=== PATIENT | male | born 1965 | race Caucasian/White ===

== ENCOUNTER → 2016-06-10 | Outpatient (CLI) | payer OTHER | LOC: BMCIMAGING 10:40 | PROVIDERS: ATTEND Internal Medicine | DX: E04.1 Nontoxic single thyroid nodule (principal) | CPT/HCPCS: 76536-PO ==

== ENCOUNTER → 2017-11-22 | Outpatient (CLI) | payer OTHER | LOC: FIMAGING 06:52 | PROVIDERS: ATTEND Internal Medicine | DX: M48.07 Spinal stenosis, lumbosacral region (principal); M53.87 Other specified dorsopathies, lumbosacral region; M51.27 Other intervertebral disc displacement, lumbosacral region ==

== ENCOUNTER 2018-05-20 14:06 | Observation (INO) | payer OTHER ==
[2018-05-20] MEDS ORDERED: ASPIRIN 81 MG CHEWABLE TAB PO ONE (14:46)
[2018-05-20] MEDS ORDERED: MAG HYDROX/AL HYDROX/SIMETH 30 ML UDCUP PO ONE (14:47)
[2018-05-20] MEDS ORDERED: HYOSCYAMINE SULFATE 0.125 MG TAB PO ONE (14:47)
[2018-05-20] MEDS ORDERED: LIDOCAINE 2% VISCOUS 15 ML UDCUP PO ONE (14:47)
[2018-05-20 14:48] LABS: PLATELET COUNT 228 10^3/uL (150-400)
--- NOTE | 2018-05-20 14:49 | CPEKG ---
Test Reason : OPEN Blood Pressure : / mmHG Vent. Rate : 100 BPM Atrial Rate : 100 BPM P-R Int : 151 ms QRS Dur : 072 ms QT Int : 339 ms P-R-T Axes : 033 -07 061 degrees QTc Int : 438 ms Sinus tachycardia Low voltage, precordial leads ST elevation, consider inferior injury Confirmed by Peter Escobar ([id number]) on 05/20/2018 2:49:25 PM Referred By: PHYSICIAN ED Confirmed By:Peter Escobar
--- NOTE | 2018-05-20 14:51 | EDPHY ---
H & P Stated Complaint: midsternal CP x ~1 hour, radiation to L arm Time Seen by Provider: 05/20/18 14:32 HPI/ROS: CHIEF COMPLAINT: Chest pain HISTORY OF PRESENT ILLNESS: 53-year-old male with hypertension presents with chest pain. This morning he ordered out in a gym and felt fine. He went to a restaurant and ate fish tacos afterwards, although he was not hungry. When he arrived home, he was showering when he had the gradual onset of substernal chest pressure. The chest pressure started at 1:00 p.m. And has been persistent and moderate. Associated with tingling in the left arm. No associated diaphoresis or shortness of breath. No prior similar symptoms. Cardiac risk factors positive for hypertension. Nonsmoker; no family history ( father [place] 64yo); diabetes or hypercholesterolemia. REVIEW OF SYSTEMS: complete 10 point ROS reviewed and is negative except for the noted elements in the HPI - Medical/Surgical History Hx Asthma: No Hx Chronic Respiratory Disease: No Hx Diabetes: No Hx Cardiac Disease: No Hx Renal Disease: No Hx Cirrhosis: No Hx Alcoholism: No Hx HIV/AIDS: No Hx Splenectomy or Spleen Trauma: No Other PMH: htn - Social History Smoking Status: Never smoked - Physical Exam Exam: General Appearance: Alert, pleasant Eyes: Pupils equal and round, no conjunctival pallor ENT, Mouth: Mucous membranes moist Neck: Normal inspection Respiratory: Lungs are clear to auscultation Cardiovascular: Regular rate and rhythm, no murmur Gastrointestinal: Abdomen is soft and nontender Neurological: A&O, nonfocal exam Skin: Warm and dry, no rash Extremities: Nontender, no pedal edema Psychiatric: Mood and affect normal Constitutional: Initial Vital Signs Temperature (C) 36.5 C 05/20/18 14:08 Heart Rate 103 H 05/20/18 14:08 Respiratory Rate 16 05/20/18 14:08 Blood Pressure 147/100 H 05/20/18 14:08 O2 Sat (%) 97 05/20/18 14:08 O2 Delivery Mode Room Air Allergies/Adverse Reactions: No Known Allergies Allergy (Verified 05/20/18 14:07) Home Medications: Medication Instructions Recorded Lisinopril [Zestril 10 mg (*)] 10 mg PO DAILY 05/20/18 Medical Decision Making - Diagnostics EKG Interpretation: EKG interpreted by me reveals sinus tachycardia, rate 100, slight ST segment elevation inferiorly. Repeat EKG interpreted by me reveals sinus rhythm, rate 93, ST segment elevation in the inferior leads and in leads V3 and V4. Imaging Results: Imaging Impressions Chest X-Ray 05/20/18 14:34 Impression: Query airways disease with no superimposed acute abnormality identified. Imaging: I viewed and interpreted images myself ED Course/Re-evaluation: This patient presents with chest pain. Initial EKG shows borderline ST segment elevation inferiorly. After my initial evaluation, a repeat EKG was ordered and reveals ST segment elevation inferiorly and in leads V3 and V4, consistent with acute coronary syndrome. Cardiac alert called. Aspirin 324 mg orally given. Morphine and Zofran IV given. Cardiology consulted. The patient was seen by Dr. Davis in the emergency department. He was taken directly to the [facility] stores. He was stable throughout his emergency department stay. Differential Diagnosis: Differential diagnosis includes though it is not limited to pneumonia, pneumothorax, pulmonary embolism, aortic dissection, pericarditis, acute coronary syndrome. - Data Points Laboratory Results: Laboratory Results 05/20/18 14:28 05/20/18 14:28 05/20/18 05/20/18 05/20/18 14:31 14:28 14:28 WBC 14.73 10^3/uL H 10^3/uL (3.80-9.50) RBC 5.33 10^6/uL 10^6/uL (4.40-6.38) Hgb 17.1 g/dL g/dL (13.7-17.5) Hct 49.0 % % (40.0-51.0) MCV 91.9 fL fL (81.5-99.8) MCH 32.1 pg pg (27.9-34.1) MCHC 34.9 g/dL g/dL (32.4-36.7) RDW 12.4 % % (11.5-15.2) Plt Count 228 10^3/uL 10^3/uL (150-400) MPV 10.7 fL fL (8.7-11.7) Neut % (Auto) 75.5 % H % (39.3-74.2) Lymph % (Auto) 17.7 % % (15.0-45.0) [place] % (Auto) 5.5 % % (4.5-13.0) Eos % (Auto) 0.5 % L % (0.6-7.6) Baso % (Auto) 0.3 % % (0.3-1.7) Nucleat RBC Rel Count 0.0 % % (0.0-0.2) Absolute Neuts (auto) 11.10 10^3/uL H 10^3/uL (1.70-6.50) Absolute Lymphs (auto) 2.61 10^3/uL 10^3/uL (1.00-3.00) Absolute Monos (auto) 0.81 10^3/uL H 10^3/uL (0.30-0.80) Absolute Eos (auto) 0.08 10^3/uL 10^3/uL (0.03-0.40) Absolute Basos (auto) 0.05 10^3/uL 10^3/uL (0.02-0.10) Absolute Nucleated RBC 0.00 10^3/uL 10^3/uL (0-0.01) Immature Gran % 0.5 % % (0.0-1.1) Immature Gran # 0.08 10^3/uL 10^3/uL (0.00-0.10) Sodium 137 mEq/L mEq/L (135-145) Potassium 3.9 mEq/L mEq/L (3.5-5.2) Chloride 103 mEq/L mEq/L (97-110) Carbon Dioxide 22 mEq/l mEq/l (22-31) Anion Gap 12 mEq/L mEq/L (6-14) BUN 18 mg/dL mg/dL (7-23) Creatinine 1.0 mg/dL mg/dL (0.7-1.3) Estimated GFR > 60 Glucose 126 mg/dL H mg/dL (70-100) Calcium 10.0 mg/dL mg/dL (8.5-10.4) POC Troponin I 0.01 ng/mL ng/mL (0.00-0.08) NT-Pro-B Natriuret Pep 18 pg/mL pg/mL (0-125) Medications Given: Ketorolac Tromethamine (Toradol) 15 mg IVP Q6HRS [facility] Stop: 05/25/18 17:59 Last Admin: 05/20/18 17:51 Dose: 15 mg Lisinopril (Zestril) 10 mg PO BID [facility] Stop: 11/16/18 20:59 Last Admin: 05/20/18 20:40 Dose: 10 mg Metoprolol Tartrate (Lopressor) 50 mg PO BID [facility] Stop: 11/16/18 20:59 Last Admin: 05/20/18 20:40 Dose: 50 mg Discontinued Medications Al Hydroxide/Mg Hydroxide (Maalox Susp) 30 ml PO ONCE ONE Stop: 05/20/18 14:48 Last Admin: 05/20/18 15:13 Dose: Not Given Aspirin (Aspirin) 324 mg PO EDNOW ONE Stop: 05/20/18 14:47 Last Admin: 05/20/18 14:55 Dose: 324 mg Hyoscyamine Sulfate (Levsin, Hyomax-Sl) 0.25 mg PO ONCE ONE Stop: 05/20/18 14:48 Last Admin: 05/20/18 15:12 Dose: Not Given Lidocaine (Lidocaine 2% Viscous) 15 ml PO ONCE ONE Stop: 05/20/18 14:48 Last Admin: 05/20/18 15:12 Dose: Not Given Morphine Sulfate (Morphine) 4 mg IVP EDNOW ONE Stop: 05/20/18 15:19 Last Admin: 05/20/18 15:28 Dose: 4 mg Ondansetron HCl (Zofran) 4 mg IVP EDNOW ONE Stop: 05/20/18 15:19 Last Admin: 05/20/18 15:28 Dose: 4 mg Point of Care Test Results: Chemistry 05/20/18 14:31 POC Troponin I 0.01 ng/mL ng/mL (0.00-0.08) Departure - Departure Disposition: [facility] Acute Clinical Impression: Acute coronary syndrome Condition: Serious
[2018-05-20] MEDS ORDERED: ONDANSETRON 4 MG/2 ML VIAL IVP ONE (15:18)
[2018-05-20] MEDS ORDERED: MIDAZOLAM 2 MG/2 ML VIAL ONE (15:39)
[2018-05-20] MEDS ORDERED: VERAPAMIL 5 MG/2 ML VIAL ONE (15:39)
[2018-05-20] MEDS ORDERED: IOPAMIDOL (ISOVUE-370) 150 ML BTL IV ONE (15:39)
[2018-05-20] MEDS ORDERED: fentaNYL 100 MCG/2 ML INJ ONE (15:39)
[2018-05-20] MEDS ORDERED: LIDOCAINE 1% 300 MG/30 ML SDV ONE (15:39)
[2018-05-20] MEDS ORDERED: HEPARIN 10,000 UNIT/10 ML MDV (1,000 UNIT/ML) ONE (15:39)
[2018-05-20] MEDS ORDERED: BIVALIRUDIN 250 MG/5 ML VIAL IV ONE (16:04)
[2018-05-20] MEDS ORDERED: METOPROLOL TARTRATE 5 MG/5 ML INJ ONE ×3 (16:06→16:28)
--- NOTE | 2018-05-20 16:37 | PDDXCAT ---
Diagnostic Cath Note - . 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 Unobstructed. LCX: Unobstructed RCA: dominant.unobstructed Ramus: unobstructed EDP: 15 mmhg LVEF: 65% Wall motion: normal. Aorta normal within field of view Complications: none Estimated blood loss: <50ml Closure method: TR Band Assessment: 1.Systemic hypertension. 2. Normal Cors. 3. Normal LV function.
--- NOTE | 2018-05-20 16:48 | GHP ---
[f rep st] HISTORY AND PHYSICAL DATE OF ADMISSION: 05/20/2018 CARDIAC ALERT NOTE TIME: 3:54. The patient is a 53-year-old male with history of hypertension, no prior cardiovascular history, who was in his usual state of good health today. At approximately 1 p.m., he took a shower. In the show er, he developed the acute onset of left-sided substernal chest pressure with some radiation to the r ight side and into the left arm. It was associated with mild nausea and not feeling well. He came t o the emergency department. EKG performed by Dr. Gonzalez initially showed minimal ST-T changes in the i nferior leads. Second EKG showed ST elevation in lead II and aVF, as well as some reciprocal changes , and a cardiac alert was activated. On my arrival, he has continued to have 3 to 4 out of 10 discom fort. CARDIAC RISKS: Include longstanding hypertension treated with lisinopril. He has no history of hyperlipidemia or diabetes. He has no history of smoking, no family of early heart disease. GENERAL REVIEW OF SYSTEMS: Negative for fever, chills, nausea, vomiting, abdominal pain, diarrhea, c onstipation. He has had no dysuria, bruising, bleeding, hematemesis, melena, or hemoptysis. He did work out earlier today without limitations. SOCIAL HISTORY: Nonsmoker. SURGICAL HISTORY: Unremarkable. PHYSICAL EXAMINATION: VITAL SIGNS: On my arrival, heart rate is 110, blood pressure 160/100. GENER AL: This is a michelle-complected male in mild distress. He is resting flat in bed. He has a michelle co mplexion. HEENT: He had no conjunctival injection. His oropharynx was clear. NECK: Revealed no s ignificant JVP. CHEST: Clear to auscultation and percussion. Palpation of the anterior chest wall revealed no RV lift. CARDIOVASCULAR: Regular rate and rhythm with soft S4. Radial pulses were +2 a nd equal. Femoral pulses were +2 and equal. Dorsalis pedis pulses were +2 and equal. SKIN: There was no peripheral edema. There was no livedo reticularis. There was no rash. NEUROLOGICAL: He is alert and oriented with normal mood and affect. There was facial symmetry. He is moving upper and l ower extremities well. DATABASE: EKG shows sinus rhythm with ST elevation in inferior leads. His white count is 14.73, wit h a hemoglobin of 17, a hematocrit of 49. His platelet count is 228,000. His serum sodium was 137, with a potassium of 3.9, chloride is 103, BUN is 18, with a creatinine of 1. His initial glucose was 126. His troponins at 1431 and 1515 were negative at 0.01. BNP is normal at 18. IMPRESSION: A 53-year-old male with acute onset substernal chest pressure radiating to the left arm, associated with abnormal EKG. Moderate cardiovascular risk based on age, hypertension, negative tro ponins, with early presentation. RECOMMENDATIONS: For a diagnostic coronary angiogram with potential intervention. Differential diag nosis will be broadened post procedure. This should also include potential of aortic pathology with history of hypertension. Those symptoms are clearly atypical for that as well. Risks and benefits o f this were discussed with the patient and his . We will use a right radial artery approach teo wong. Clinical followup post procedure. /[id number]/MODL
[2018-05-20] MEDS: KETOROLAC 15 MG/1 ML SDV IVP SCH (17:51)
[2018-05-20 19:20] LABS: CREATINE KINASE 299 IU/L (0-224)
[2018-05-20] MEDS: LISINOPRIL 10 MG TAB PO SCH (20:40)
[2018-05-20] MEDS: METOPROLOL TARTRATE 50 MG TAB PO SCH (20:40)
--- NOTE | 2018-05-20 21:39 | CPEKG ---
Test Reason : OPEN Blood Pressure : / mmHG Vent. Rate : 093 BPM Atrial Rate : 094 BPM P-R Int : 153 ms QRS Dur : 071 ms QT Int : 352 ms P-R-T Axes : 038 -04 064 degrees QTc Int : 438 ms Sinus rhythm Inferior infarct, acute (LCx) Minimal ST elevation, anterior leads Confirmed by Barbara Nelson ([id number]) on 05/20/2018 9:38:59 PM Referred By: BARBARA NELSON Confirmed By:Barbara Nelson
[2018-05-21 00:19] LABS: CREATINE KINASE 378 IU/L (0-224)
[2018-05-21] MEDS: KETOROLAC 15 MG/1 ML SDV IVP SCH ×2 (00:43→05:38)
[2018-05-21] MEDS ORDERED: ASPIRIN EC 81 MG TAB PO SCH (09:00)
[2018-05-21] MEDS: METOPROLOL TARTRATE 50 MG TAB PO SCH (10:14)
[2018-05-21] MEDS: LISINOPRIL 10 MG TAB PO SCH (10:14)
[2018-05-21 11:30] VITALS: BP 124/81
[2018-05-21 11:41] LABS: CREATINE KINASE 361 IU/L (0-224)
--- NOTE | 2018-05-21 12:21 | ASDISCHSUM ---
Discharge Information Plan Status:Home with No Needs Medically Cleared to Leave: Discharge Date: CM D/C Disposition:Home, Routine, Self-Care ADT D/C Disposition: Projected Discharge Date:05/21/2018 12:00 AM Transportation at D/C: Discharge Delay Reason: Follow-Up Date:05/21/2018 12:00 AM Discharge Slot: Final Diagnosis: Placement Information Patient Contact Information Contact Name:YOGESH Relationship: Address:[address] Work Phone: City:[facility] Phone: State/Zip Code:[place] [address] Email: Financial Information Financial Class:HMO and PPO Plans Primary Plan Desc:[facility] Primary Plan Number:[id number] Secondary Plan Desc: Secondary Plan Number: Assessment Information Case Management Discharge Plan Note Case Management Discharge Discharge Order Complete? Answers: Yes Patient to Obtain Answers: via Family Medications Transportation Arranged Answers: Family/Friends Discharge Comments Notes: Pt is cleared for discharge by MD, CM spoke with RN, no CM needs identified. Pt is being discharged independently. Family to transport. Date Signed: 05/21/2018 12:18 PM Electronically Signed By:ALEXANDER Montero LACE LACTonya Length of stay for Answers: Less than 1 day current admission Acuity / Level of Answers: Yes Care: Did the patient have an inpatient admission? Comorbidities - select Answers: Other Notes: Hypertension, Acute all that apply Coronary Syndrome # of Emergency department Answers: 0 visits in the last 6 months Score: 4 Date Signed: 05/21/2018 12:20 PM Electronically Signed By:ALEXANDRE Montero Intervention Information Intervention Type:*Incorrect Registration Date of Service:05/21/2018 11:12 AM Patient Type:Inpatient Staff Member:Amirah Richard Hours: Discipline: Severity: Comment:
--- NOTE | 2018-05-21 13:03 | PDDCSUM ---
Discharge Summary Discharge Summary: Admission date 05/20/2018 Discharge date 05/21/2018 Admission diagnosis acute coronary syndrome Discharge diagnosis acute coronary syndrome, hypertension Procedures: Left heart catheterization coronary ventricular angiography, echocardiography Follow-up [facility] one-week Hospital course: 53-year-old male admitted through the emergency department is a cardiac alert for acute coronary syndrome. This was characterized by chest pain, EKG changes in the inferior leads, He was taken to the cardiac catheterization lab and found have angiographically normal coronary arteries with preserved LV systolic function. Patient's chest pain was aggressively treated with nonsteroidal anti-inflammatory drugs, beta-sonia with resolution of symptoms. He had no recurrence during the rest of his hospitalization. Troponins peaked at 5. EKG changes resolved. He ambulated without discomfort. Echocardiogram done the following day revealed overall preserved LV systolic function without new regional wall motion abnormalities. There is no pericardial effusion. There are no valvular abnormalities. Patient was noted to be hypertensive on admission. This was treated with addition of beta- sonia on top of Christos inhibitor. Physical examination revealed normal blood pressure of 130/70 with a heart rate of 52. He had no JVP. Chest was clear. Cardiac exam on the day of discharge revealed a regular rate and rhythm without a rub. His abdomen was soft. Puncture site was healing well without ecchymosis erythema or edema. Patient will be treated aggressively with Christos inhibition, beta-sonia, low-dose aspirin. Clinical follow-up in 1 week. Cannot exclude myocarditis is etiology though timing, clinical syndrome not consistent. Troponin rise and fall more consistent with an acute syndrome. Takotsubo's cardiomyopathy was discussed. Patient has had no undue stressors. With overall preserved LV systolic function normal coronary arteries I think his prognosis is quite good. Will continue aggressive medical therapy with clinical follow-up as outlined above. Questions are answered with patient his family. Will advised him not to do heavy physical activity until follow-up.
--- NOTE | 2018-05-21 18:41 | ECHO ---
[email or web address] [address] [address] Main: [phone] Echocardiography Examination Transthoracic Name: ROMAINE GARCIA MR#: [id number] Study Date: 05/21/2018 Study Time: 09:55 AM Date of : 1965 Age: 53 year(s) Height: 177.8 cm (70 in.) Weight: 92.99 kg (205 lb.) BSA: 2.11 m2 Gender: Male Examination: Echo Indication: Eval LV function Image Quality: Adequate Contrast: Requested by: Luis Fernando Davis MD BP: 124 mmHg/81 mmHg Heart Rate: Rhythm: Indication: Eval LV function Procedure Staff Referring Physician: Claims Adjuster Crop: Caro Randall RDCS Reading Physician: Tony Lamas MD Requesting Provider: Ordering Physician: Luis Fernando Davis MD Indication: Eval LV function Measurements Chambers AV/MV Label Value Normal Value Label Value Normal Value EF lower range (%) 60 % AV PGmean 2 mmHg EF upper range (%) 65 % AV Vmax, Curve 1 m/s IVSd, 2D 0.9 cm (0.6cm - 1.1cm) MV A Vmax 0.59 m/s LVDd, 2D 5 cm (4.2cm - 5.9cm) MV E' lateral 0.1 m/s LVDs, 2D 3.2 cm (2.1cm - 4cm) MV E' mean 0.1 m/s LVEF, 2D 66 % (54% - 74%) MV E' septal 0.09 m/s LVEF, BP 73 % (55% - 70%) MV E Vmax 0.58 m/s LVEF, MOD2 75 % (55% - 70%) MV E/A 0.98 LVEF, MOD4 71 % (55% - 70%) MV E/E' lateral 5.9 LVPWd, 2D 0.9 cm (0.6cm - 1cm) MV E/E' mean 6.11 LA Area, A2C 19.6 cm2 (0cm2 - 20cm2) MV E/E' septal 6.6 (0.5 - 1.7) LA Volume, A2C 59 ml (18ml - 58ml) TV/PV LADs, 2D 3.8 cm (3cm - 4cm) Label Value Normal Value Additional Vessels RA Pressure 5 mmHg Label Value Normal Value RVSP 31 mmHg AoAsc 3.9 cm TR Pmax 26 mmHg AoRoot, MM 3.7 cm (2.2cm - 3.7cm) TR Vmax 2.54 m/s Patient: ROMAINE GARCIA Study Date: 05/21/2018 Page 1 of 3 09:55 AM Conclusions Normal left ventricular systolic ejection fraction (60-65%) No LVH Mild RV dilation with mild reduction in systolic function Grossly normal atrial dimensions Mild MR Trileaflet aortic valve without sclerosis or insufficiency Mild TR with RVSP or 31 mm Hg Normal ascending aorta measurement Findings Left Ventricle: Left ventricle is normal in size. Normal global systolic left ventricular function. EF range is estimated at 60 % - 65 %. Left ventricle wall thickness is normal. There is no regional wall motion abnormalities. Left ventricular diastolic function parameters are normal. IVS: The septum is intact. Right Ventricle: Mildly dilated right ventricle. Right ventricular wall thickness is normal. Right ventricular systolic function is reduced. Left Atrium: The left atrium is normal in size. IAS: Normal appearing atrial septum. Right Atrium: The right atrium is borderline dilated. Mitral Valve: Normal . Mild mitral regurgitation. No mitral valve stenosis. Aortic Valve: Aortic leaflets exhibit normal cuspal separation. No aortic valve regurgitation. There is no aortic stenosis. The aortic valve is trileaflet. Tricuspid Valve: Tricuspid valve leaflets are normal in appearance and function. Mild tricuspid regurgitation. No tricuspid valve stenosis. Right Ventricular systolic pressure is measured at 31 mmHg. Pulmonary artery pressure normal. Pulmonic Valve: Pulmonic leaflets exhibit normal cuspal separation. No pulmonic valve regurgitation is evident. There is no pulmonic valve stenosis. Aorta: The aorta is normal. The aortic root size in M-mode measures 3.7 cm. The ascending aorta measures 3.9 cm. Aorta Measurements AoRoot, MM is 3.7 cm. Pulmonary Artery: The pulmonary artery morphology appears normal. IVC: The inferior vena cava is normal in size and course. Pericardium: No pericardial effusion. No pleural effusion present. Exam Details Procedure Ordered: Echo Procedure Status: Routine study Image Quality: Adequate Facility Location: Cardiac Echo 1 Patient: ROMAINE GARCIA Study Date: 05/21/2018 Page 2 of 3 09:55 AM (No Signature Object) Patient: ROMAINE GARCIA Study Date: 05/21/2018 Page 3 of 3 09:55 AM [id number]
--- NOTE | 2018-05-24 08:50 | CPEKG ---
Test Reason : OPEN Blood Pressure : / mmHG Vent. Rate : 065 BPM Atrial Rate : 065 BPM P-R Int : 172 ms QRS Dur : 077 ms QT Int : 415 ms P-R-T Axes : 034 -02 004 degrees QTc Int : 432 ms Sinus rhythm Multiple premature complexes, vent & supraven Confirmed by Tony Lamas ([id number]) on 05/24/2018 8:50:32 AM Referred By: SULY GEIGER Confirmed By:Tony Lamas
== END 2018-05-21 13:49 | disposition home or self-care (01) ==
LOC: INTOOBSV 15:10 → F2W 16:50
PROVIDERS: ADMIT Internal Medicine Interventional Cardiology; ATTEND Internal Medicine Interventional Cardiology
DX: I24.9 Acute ischemic heart disease, unspecified (principal); I10 Essential (primary) hypertension; Z82.49 Family history of ischemic heart disease and other diseases of the circulatory system
CPT/HCPCS: 71046; 93005; 93306; 93458; 96374; 96375; 96376; 99285; C1769; G0378; 84484-ER; J0583; J1644; J1885; J2250; J2270; J2405; J3010; Q9967